=== PATIENT | female | born 1945 | race Caucasian/White ===

== ENCOUNTER 2021-07-13 16:53 | Inpatient (IN) ==
[2021-07-13] MEDS ORDERED: SODIUM CHLORIDE 0.9% IV STA ×2 (17:15→17:59)
[2021-07-13] MEDS ORDERED: LEVETIRACETAM IV STA ×2 (17:15→17:59)
[2021-07-13 17:19] LABS: Basophils % 0.4 % (0.0-0.8); Hematocrit 41.3 VOL% (35.7-47.0); Hemoglobin 13.7 GM/DL (12.0-16.0); Immature Granulocytes % 0.6 %; Immature Granulocytes Absolute 0.06 #; Lymphocytes # 0.8 10*3/uL (1.4-4.0); Lymphocytes % 8.3 % (21.3-54.2); Mean Corpuscular HGB Conc 33.2 GM/DL (32-36); Mean Corpuscular Volume 88.6 FL (87-102); Mean Platelet Volume 9.6 FL (9.6-12.0); Monocytes % 8.5 % (1.7-12.7); Neutrophils % 82.2 % (38.7-73.9); Platelet Count 374 T/CUMM (130-400); Red Blood Count 4.66 MC/CUMM (3.8-5.5); Red Cell Distribution Width 14.4 % (9.3-17.3); White Blood Count 9.8 T/CUMM (4-12)
[2021-07-13 17:40] LABS: Alanine Aminotransferase 13 U/L (13-56); Albumin 3.5 G/DL (3.4-5.0); Alkaline Phosphatase 92 U/L (45-117); Aspartate Amino Transferase 18 U/L (0-37); Blood Urea Nitrogen 19 MG/DL (7-18); Calcium 9.4 MG/DL (8.5-10.1); Carbon Dioxide 19 MMOL/L (21-32); Estimated Glom Filtration Rate 20 ML/MIN; Glucose 162 MG/DL (74-106); Osmolality,Calculated 269.5 MOS/KG (273-304); Potassium 2.6 MMOL/L (3.5-5.1); Sodium 132 MMOL/L (136-145); Total Protein 7.5 G/DL (6.4-8.2)
[2021-07-13 17:42] LABS: Bacteria,Urine Occasional /HPF (Few); Bilirubin,Urine Negative (Negative); Blood, Urine Small mg/dL (Negative); Glucose,Urine (UA) Negative (Negative); Hyaline Casts,Urine 14 /LPF (0-3); Ketones,Urine 5 mg/dL (Negative); Mucus,Urine Occasional /LPF (Occasional); Nitrite,Urine Negative (Negative); Protein,Urine >=500 MG/DL; RBC,Urine 4 /HPF (0-4); Squamous Epithelial Cell,Urine Occasional /HPF (0-10); Urine Appearance CLEAR (Clear); Urine Color Yellow (Yellow); Urine Specific Gravity 1.015 (1.001-1.035); Urine Urobilinogen < 2.0 EU/DL (0.2-1.0)
[2021-07-13] MEDS ORDERED: LACTATED RINGERS 1,000 ML IV ONE (17:45)
[2021-07-13 17:48] LABS: ABG Base Excess -0.3 MMOL/L (-2.5-2.5); ABG HCO3 24.2 MMOL/L (20-26); ABG Oxygen Saturation 98.2 % (95-100); ABG PCO2 38.6 MM HG (35-48); ABG PH 7.405 (7.35-7.45); ABG TCO2 21.2 MMOL/L (23-27)
[2021-07-13 17:48] LABS: Barbiturates Screen,Urine Negative (Negative); Benzodiazepines Screen,Urine Positive (Negative); Cannabinoid Screen,Urine Negative (Negative); Opiate Screen,Urine Negative (Negative); Phencyclidine Screen,Urine Negative (Negative)
[2021-07-13 18:08] LABS: PT Patient Result 11.1 SECS (10.5-12.0); Partial Thromboplastin Time 27.2 SECS (23.8-32.1)
[2021-07-13] MEDS ORDERED: LABETALOL 20 MG/4 ML SYRINGE IV STA (18:28)
[2021-07-13] MEDS: niCARdipine INJ 25 MG in SODIUM CHLORIDE 0.9% 240 ML IV PRN (20:30)
[2021-07-13] MEDS ORDERED: ETOMIDATE 20 MG/10 ML VIAL IV ONE (20:33)
[2021-07-13] MEDS ORDERED: ROCURONIUM 100 MG/10 ML VIAL IV ONE (20:36)
[2021-07-13] MEDS ORDERED: MORPHINE 2 MG/1 ML SYRINGE IV PRN (20:44)
[2021-07-13] MEDS ORDERED: ONDANSETRON 4 MG/2 ML VIAL IV PRN (20:44)
[2021-07-13] MEDS ORDERED: ACETAMINOPHEN 325 MG TABLET PO PRN (20:44)
[2021-07-13] MEDS ORDERED: NICOTINE 21 MG/24 HR PATCH TRANSDERM PRN (20:44)
[2021-07-13] MEDS ORDERED: ALBUTEROL/IPRATROPIUM 3 ML NEB RESP TX PRN (20:44)
[2021-07-13] MEDS ORDERED: ALBUTEROL 2.5 MG/3 ML NEB RESP TX PRN (20:44)
[2021-07-13] MEDS ORDERED: SODIUM CHLORIDE 0.9% 1,000 ML IV ONE (20:44)
[2021-07-13] MEDS ORDERED: LORazepam 2 MG/1 ML VIAL IV PRN (21:01)
[2021-07-13] MEDS: ENOXAPARIN 30 MG/0.3 ML SYRINGE SUBCUT SCH (21:27)
[2021-07-13] MEDS: PANTOPRAZOLE 40 MG VIAL IV SCH (21:27)
[2021-07-13 21:52] LABS: ABG Base Excess -1.4 MMOL/L (-2.5-2.5); ABG HCO3 23.3 MMOL/L (20-26); ABG Oxygen Saturation 99.5 % (95-100); ABG PCO2 45.9 MM HG (35-48); ABG PH 7.339 (7.35-7.45); ABG TCO2 21.9 MMOL/L (23-27)
[2021-07-13] MEDS: SODIUM CHLORIDE 0.9% 1,000 ML IV SCH (22:51)
[2021-07-13] MEDS ORDERED: MIDAZOLAM 100 MG in SODIUM CHLORIDE 0.9% 80 ML IV PRN (23:17)
[2021-07-13] MEDS: POTASSIUM CHLORIDE RIDER 20 MEQ/100 ML PREMIX IV PRN (23:55)
[2021-07-14] MEDS: POTASSIUM CHLORIDE RIDER 20 MEQ/100 ML PREMIX IV PRN ×2 (01:52→10:04)
[2021-07-14] MEDS ORDERED: SODIUM CHLORIDE 0.9% 1,000 ML IV ONE (02:03)
[2021-07-14] MEDS: SODIUM CHLORIDE 0.9% 1,000 ML IV SCH ×3 (03:14→19:51)
[2021-07-14 03:59] LABS: ABG Base Excess -2.9 MMOL/L (-2.5-2.5); ABG Oxygen Saturation 99.2 % (95-100); ABG PCO2 43.1 MM HG (35-48); ABG PH 7.334 (7.35-7.45); ABG TCO2 20.7 MMOL/L (23-27); Allen Test Positive; Pt O2 Delivery Device Ventilator
[2021-07-14] MEDS: POTASSIUM CHLORIDE RIDER 10 MEQ/100 ML PREMIX IV PRN ×2 (04:01→12:35)
[2021-07-14] MEDS: niCARdipine INJ 25 MG in SODIUM CHLORIDE 0.9% 240 ML IV PRN (04:01)
[2021-07-14 04:42] LABS: Basophils % 0.3 % (0.0-0.8); Eosinophils % 0.2 % (0.00-10.9); Hematocrit 31.9 VOL% (35.7-47.0); Immature Granulocytes % 0.7 %; Immature Granulocytes Absolute 0.07 #; Lymphocytes # 1.7 10*3/uL (1.4-4.0); Lymphocytes % 16.7 % (21.3-54.2); Mean Corpuscular HGB Conc 33.2 GM/DL (32-36); Mean Corpuscular Volume 89.6 FL (87-102); Mean Platelet Volume 9.5 FL (9.6-12.0); Neutrophils % 71.1 % (38.7-73.9); Red Cell Distribution Width 14.6 % (9.3-17.3)
[2021-07-14 04:49] LABS: Hemoglobin 10.6 GM/DL (12.0-16.0); Platelet Count 290 T/CUMM (130-400); Red Blood Count 3.56 MC/CUMM (3.8-5.5)
[2021-07-14 06:36] LABS: Albumin 2.5 G/DL (3.4-5.0); Bilirubin,Total 0.4 MG/DL (0.20-1.00); Calcium 7.6 MG/DL (8.5-10.1); Potassium 3.6 MMOL/L (3.5-5.1); Total Protein 5.5 G/DL (6.4-8.2)
[2021-07-14 10:16] LABS: Risk Ratio 3.34; VLDL Cholesterol 17.6 MG/DL
[2021-07-14] MEDS ORDERED: amLODIPine 5 MG TABLET PO SCH (11:00)
[2021-07-14] MEDS ORDERED: METOPROLOL TARTRATE 25 MG TABLET PO SCH (11:00)
[2021-07-14] MEDS: hydrALAZINE 20 MG/1 ML VIAL IV PRN (20:21)
[2021-07-14] MEDS: PANTOPRAZOLE 40 MG VIAL IV SCH (20:22)
[2021-07-14] MEDS: ENOXAPARIN 30 MG/0.3 ML SYRINGE SUBCUT SCH (20:22)
[2021-07-14] MEDS: MONTELUKAST 10 MG TABLET PO SCH (20:29)
[2021-07-15] MEDS: hydrALAZINE 20 MG/1 ML VIAL IV PRN ×2 (03:36→17:48)
[2021-07-15] MEDS: LORazepam 2 MG/1 ML VIAL IV PRN (03:36)
[2021-07-15] MEDS: SODIUM CHLORIDE 0.9% 1,000 ML IV SCH (03:41)
[2021-07-15 04:28] LABS: ABG Base Excess -9.1 MMOL/L (-2.5-2.5); ABG HCO3 17.1 MMOL/L (20-26); ABG Oxygen Saturation 98.2 % (95-100); ABG PCO2 33.4 MM HG (35-48); ABG TCO2 14.9 MMOL/L (23-27)
[2021-07-15 04:44] LABS: Basophils # 0.1 10*3/uL (0.0-0.2); Basophils % 0.3 % (0.0-0.8); Hematocrit 33.6 VOL% (35.7-47.0); Hemoglobin 10.8 GM/DL (12.0-16.0); Immature Granulocytes Absolute 0.15 #; Lymphocytes % 6.8 % (21.3-54.2); Mean Corpuscular HGB Conc 32.1 GM/DL (32-36); Mean Corpuscular Volume 90.6 FL (87-102); Mean Platelet Volume 10.1 FL (9.6-12.0); Monocytes % 6.8 % (1.7-12.7); Neutrophils % 85.1 % (38.7-73.9); Platelet Count 299 T/CUMM (130-400); Red Blood Count 3.71 MC/CUMM (3.8-5.5); Red Cell Distribution Width 15.5 % (9.3-17.3); White Blood Count 14.6 T/CUMM (4-12)
[2021-07-15 04:59] LABS: Calcium 8.5 MG/DL (8.5-10.1); Osmolality,Calculated 276.5 MOS/KG (273-304); Potassium 3.6 MMOL/L (3.5-5.1)
[2021-07-15] MEDS: POTASSIUM CHLORIDE RIDER 20 MEQ/100 ML PREMIX IV PRN (06:40)
[2021-07-15] MEDS ORDERED: LABETALOL 20 MG/4 ML SYRINGE IV ONE (07:09)
[2021-07-15] MEDS ORDERED: MAGNESIUM SULF RIDER 4 GM/100 ML PREMIX IV PRN (07:36)
[2021-07-15] MEDS ORDERED: MAGNESIUM SULF RIDER 2 GM/50 ML PREMIX IV PRN (07:36)
[2021-07-15] MEDS: METOPROLOL SUCCINATE XL 25 MG TABLET PO SCH (09:04)
[2021-07-15] MEDS: CHOLECALCIFEROL 400 UNIT TABLET PO SCH (09:08)
[2021-07-15] MEDS: ASPIRIN 325 MG TABLET PO SCH (09:08)
[2021-07-15] MEDS: DEXT 5% NACL 0.45% KCL 20 MEQ 20 MEQ/1,000 ML BAG IV SCH (10:54)
[2021-07-15] MEDS: ALBUTEROL/IPRATROPIUM 3 ML NEB RESP TX SCH ×4 (11:18→23:25)
[2021-07-15] MEDS ORDERED: amLODIPine 10 MG TABLET PO ONE (11:42)
[2021-07-15] MEDS ORDERED: hydrALAZINE 10 MG TABLET PO SCH (15:00)
[2021-07-15] MEDS ORDERED: METOPROLOL TARTRATE 5 MG/5 ML VIAL IV ONE (15:18)
[2021-07-15 15:47] LABS: Calcium 8.3 MG/DL (8.5-10.1); Osmolality,Calculated 280.4 MOS/KG (273-304); Potassium 4.3 MMOL/L (3.5-5.1)
[2021-07-15] MEDS ORDERED: CLORAZEPATE 7.5 MG TABLET PO ONE (18:27)
[2021-07-15] MEDS: ATORVASTATIN 40 MG TABLET PO SCH (21:18)
[2021-07-15] MEDS: MONTELUKAST 10 MG TABLET PO SCH (21:19)
[2021-07-15] MEDS: hydrALAZINE 25 MG TABLET PO SCH (21:19)
[2021-07-15] MEDS: ENOXAPARIN 30 MG/0.3 ML SYRINGE SUBCUT SCH (21:19)
[2021-07-16] MEDS: DEXT 5% NACL 0.45% KCL 20 MEQ 20 MEQ/1,000 ML BAG IV SCH (01:31)
[2021-07-16] MEDS: ALBUTEROL/IPRATROPIUM 3 ML NEB RESP TX SCH ×6 (03:05→23:20)
[2021-07-16 04:46] LABS: Basophils % 0.1 % (0.0-0.8); Hematocrit 34.6 VOL% (35.7-47.0); Hemoglobin 10.9 GM/DL (12.0-16.0); Immature Granulocytes % 2.1 %; Immature Granulocytes Absolute 0.31 #; Lymphocytes # 0.5 10*3/uL (1.4-4.0); Lymphocytes % 3.2 % (21.3-54.2); Mean Corpuscular HGB Conc 31.5 GM/DL (32-36); Mean Corpuscular Volume 95.1 FL (87-102); Mean Platelet Volume 10.1 FL (9.6-12.0); Monocytes % 4.5 % (1.7-12.7); Neutrophils % 90.1 % (38.7-73.9); Platelet Count 283 T/CUMM (130-400); Red Blood Count 3.64 MC/CUMM (3.8-5.5); Red Cell Distribution Width 16.1 % (9.3-17.3); White Blood Count 14.7 T/CUMM (4-12)
[2021-07-16 04:59] LABS: Calcium 8.5 MG/DL (8.5-10.1); Osmolality,Calculated 282.5 MOS/KG (273-304); Potassium 5.1 MMOL/L (3.5-5.1)
[2021-07-16 05:15] LABS: Hypochromasia Slight; Lymphocytes 4 % (20-55); Microcytosis Slight; Platelet Estimate Adequate; Segmented Neutrophils 95 % (50-85); Total Cells Counted 100
[2021-07-16] MEDS ORDERED: FUROSEMIDE 40 MG/4 ML VIAL IV ONE ×2 (08:25→21:00)
[2021-07-16 08:40] LABS: ABG Base Excess -13.2 MMOL/L (-2.5-2.5); ABG HCO3 14.2 MMOL/L (20-26); ABG Oxygen Saturation 89.8 % (95-100); ABG PO2 73.5 MM HG (80-95); ABG TCO2 19.5 MMOL/L (23-27); Allen Test Positive; Pt O2 Delivery Device Simple Mask
[2021-07-16 08:47] LABS: ABG PH 7.007 (7.35-7.45)
[2021-07-16 08:48] LABS: ABG PCO2 79.8 MM HG (35-48)
[2021-07-16] MEDS ORDERED: SODIUM BICARBONATE 50 MEQ/50 ML SYRINGE IV ONE ×2 (09:32→10:00)
[2021-07-16] MEDS: hydrALAZINE 25 MG TABLET PO SCH ×3 (10:12→20:46)
[2021-07-16] MEDS: NICOTINE 21 MG/24 HR PATCH TRANSDERM SCH (10:12)
[2021-07-16] MEDS: PANTOPRAZOLE 40 MG TABLET PO SCH (10:13)
[2021-07-16] MEDS: CHOLECALCIFEROL 400 UNIT TABLET PO SCH (10:13)
[2021-07-16] MEDS: ASPIRIN 325 MG TABLET PO SCH (10:13)
[2021-07-16] MEDS: METOPROLOL SUCCINATE XL 25 MG TABLET PO SCH (10:13)
[2021-07-16] MEDS: methylPREDNISolone SOD SUC 40 MG/1 ML VIAL IV SCH ×2 (10:19→20:40)
[2021-07-16] MEDS: CLINDAMYCIN INJ 600 MG/50 ML PREMIX IV SCH ×2 (10:22→17:23)
[2021-07-16 10:51] LABS: ABG HCO3 19.5 MMOL/L (20-26); ABG Oxygen Saturation 92.4 % (95-100); ABG PCO2 50.1 MM HG (35-48); ABG PH 7.245 (7.35-7.45); ABG PO2 65.3 MM HG (80-95); ABG TCO2 19.9 MMOL/L (23-27); Allen Test Positive; Pt O2 Delivery Device BIPAP
[2021-07-16] MEDS: hydrALAZINE 20 MG/1 ML VIAL IV PRN (13:07)
[2021-07-16] MEDS ORDERED: amLODIPine 10 MG TABLET PO ONE (17:16)
[2021-07-16] MEDS: INSULIN LISPRO 100 UNIT/ML SUBCUT SCH (18:24)
[2021-07-16] MEDS: ENOXAPARIN 30 MG/0.3 ML SYRINGE SUBCUT SCH (20:32)
[2021-07-16] MEDS: ATORVASTATIN 40 MG TABLET PO SCH (20:46)
[2021-07-16] MEDS: MONTELUKAST 10 MG TABLET PO SCH (20:46)
[2021-07-17] MEDS: CLINDAMYCIN INJ 600 MG/50 ML PREMIX IV SCH (03:09)
[2021-07-17] MEDS: INSULIN LISPRO 100 UNIT/ML SUBCUT SCH ×4 (03:12→17:58)
[2021-07-17] MEDS: ALBUTEROL/IPRATROPIUM 3 ML NEB RESP TX SCH ×6 (03:45→22:50)
[2021-07-17 04:17] LABS: ABG Base Excess -1.3 MMOL/L (-2.5-2.5); ABG HCO3 23.4 MMOL/L (20-26); ABG Oxygen Saturation 99.4 % (95-100); ABG PCO2 30.6 MM HG (35-48); ABG TCO2 19.6 MMOL/L (23-27)
[2021-07-17 05:18] LABS: Basophils % 0.2 % (0.0-0.8); Eosinophils # 0.1 10*3/uL (0.0-0.87); Eosinophils % 0.3 % (0.00-10.9); Hematocrit 30.5 VOL% (35.7-47.0); Hemoglobin 10.1 GM/DL (12.0-16.0); Immature Granulocytes % 0.7 %; Immature Granulocytes Absolute 0.14 #; Lymphocytes # 0.5 10*3/uL (1.4-4.0); Lymphocytes % 2.4 % (21.3-54.2); Mean Corpuscular HGB Conc 33.1 GM/DL (32-36); Mean Corpuscular Volume 88.9 FL (87-102); Mean Platelet Volume 10.9 FL (9.6-12.0); NRBC # 0.02 10*3/uL; Neutrophils % 92.4 % (38.7-73.9); Platelet Count 245 T/CUMM (130-400); Red Blood Count 3.43 MC/CUMM (3.8-5.5); Red Cell Distribution Width 15.8 % (9.3-17.3); White Blood Count 19.2 T/CUMM (4-12)
[2021-07-17 05:39] LABS: Band Neutrophils 4 % (0-10); Hypochromasia 1+; Lymphocytes 5 % (20-55); Microcytosis 1+; Platelet Estimate Adequate; Segmented Neutrophils 88 % (50-85); Total Cells Counted 100
[2021-07-17 05:44] LABS: Alanine Aminotransferase 11 U/L (13-56); Albumin 2.1 G/DL (3.4-5.0); Alkaline Phosphatase 63 U/L (45-117); Aspartate Amino Transferase 24 U/L (0-37); Bilirubin,Total < 0.39 MG/DL (0.20-1.00); Blood Urea Nitrogen 33 MG/DL (7-18); Carbon Dioxide 24 MMOL/L (21-32); Estimated Glom Filtration Rate 19 ML/MIN; Glucose 153 MG/DL (74-106); Osmolality,Calculated 288.4 MOS/KG (273-304); Potassium 4.2 MMOL/L (3.5-5.1); Sodium 140 MMOL/L (136-145); Total Protein 5.6 G/DL (6.4-8.2)
[2021-07-17] MEDS: CLINDAMYCIN INJ 900 MG/50 ML PREMIX IV SCH ×2 (09:09→15:14)
[2021-07-17] MEDS: METOPROLOL SUCCINATE XL 25 MG TABLET PO SCH (09:12)
[2021-07-17] MEDS: hydrALAZINE 25 MG TABLET PO SCH ×3 (09:12→21:08)
[2021-07-17] MEDS: amLODIPine 10 MG TABLET PO SCH (09:12)
[2021-07-17] MEDS: OMEPRAZOLE ODT 20 MG TABLET PER TUBE SCH (09:12)
[2021-07-17] MEDS: CHOLECALCIFEROL 400 UNIT TABLET PO SCH (09:12)
[2021-07-17] MEDS: ASPIRIN 325 MG TABLET PO SCH (09:12)
[2021-07-17] MEDS: NICOTINE 21 MG/24 HR PATCH TRANSDERM SCH (09:13)
[2021-07-17] MEDS: methylPREDNISolone SOD SUC 40 MG/1 ML VIAL IV SCH ×2 (09:16→16:41)
[2021-07-17] MEDS ORDERED: methylPREDNISolone SOD SUC 40 MG/1 ML VIAL IV SCH (10:30)
[2021-07-17] MEDS ORDERED: SODIUM CHLORIDE 0.65% NASAL SPRAY 45 ML BOTTLE BOTH NARES PRN (12:02)
[2021-07-17] MEDS ORDERED: LORazepam 2 MG/1 ML VIAL ONE (20:40)
[2021-07-17] MEDS: ENOXAPARIN 30 MG/0.3 ML SYRINGE SUBCUT SCH (21:00)
[2021-07-17] MEDS: ATORVASTATIN 40 MG TABLET PO SCH (21:01)
[2021-07-17] MEDS: MONTELUKAST 10 MG TABLET PO SCH (21:01)
[2021-07-17] MEDS: LORazepam 2 MG/1 ML VIAL IV PRN (21:02)
[2021-07-18] MEDS: INSULIN LISPRO 100 UNIT/ML SUBCUT SCH ×4 (01:36→18:22)
[2021-07-18] MEDS: NICOTINE 21 MG/24 HR PATCH TRANSDERM SCH ×2 (01:44→10:11)
[2021-07-18] MEDS: methylPREDNISolone SOD SUC 40 MG/1 ML VIAL IV SCH ×3 (01:45→17:28)
[2021-07-18] MEDS: CLINDAMYCIN INJ 900 MG/50 ML PREMIX IV SCH ×3 (01:45→17:28)
[2021-07-18] MEDS: hydrALAZINE 20 MG/1 ML VIAL IV PRN (02:16)
[2021-07-18] MEDS: ALBUTEROL/IPRATROPIUM 3 ML NEB RESP TX SCH ×6 (03:30→23:32)
[2021-07-18 04:18] LABS: ABG Base Excess -0.6 MMOL/L (-2.5-2.5); ABG HCO3 23.9 MMOL/L (20-26); ABG Oxygen Saturation 99.8 % (95-100); ABG PCO2 33.3 MM HG (35-48); ABG PH 7.446 (7.35-7.45); ABG TCO2 20.8 MMOL/L (23-27)
[2021-07-18] MEDS ORDERED: LORazepam 2 MG/1 ML VIAL ONE (05:33)
[2021-07-18 05:36] LABS: Basophils % 0.1 % (0.0-0.8); Hematocrit 27.8 VOL% (35.7-47.0); Hemoglobin 9.3 GM/DL (12.0-16.0); Immature Granulocytes % 2.3 %; Immature Granulocytes Absolute 0.46 #; Lymphocytes # 0.5 10*3/uL (1.4-4.0); Lymphocytes % 2.2 % (21.3-54.2); Mean Corpuscular HGB Conc 33.5 GM/DL (32-36); Mean Corpuscular Volume 87.4 FL (87-102); Mean Platelet Volume 11.1 FL (9.6-12.0); Monocytes % 5.5 % (1.7-12.7); NRBC # 0.04 10*3/uL; Neutrophils % 89.9 % (38.7-73.9); Platelet Count 237 T/CUMM (130-400); Red Blood Count 3.18 MC/CUMM (3.8-5.5); Red Cell Distribution Width 15.9 % (9.3-17.3); White Blood Count 20.1 T/CUMM (4-12)
[2021-07-18] MEDS: LORazepam 2 MG/1 ML VIAL IV PRN (05:36)
[2021-07-18 05:53] LABS: Calcium 8.8 MG/DL (8.5-10.1); Osmolality,Calculated 291.3 MOS/KG (273-304); Potassium 3.8 MMOL/L (3.5-5.1)
[2021-07-18 05:58] LABS: Band Neutrophils 2 % (0-10); Eosinophils 1 % (0-10); Hypochromasia Slight; Lymphocytes 5 % (20-55); Platelet Estimate Adequate; Segmented Neutrophils 84 % (50-85); Total Cells Counted 100
[2021-07-18] MEDS ORDERED: CLORAZEPATE 3.75 MG TABLET PO PRN (08:35)
[2021-07-18] MEDS: ASPIRIN 325 MG TABLET PO SCH (10:06)
[2021-07-18] MEDS: CHOLECALCIFEROL 400 UNIT TABLET PO SCH (10:06)
[2021-07-18] MEDS: OMEPRAZOLE ODT 20 MG TABLET PER TUBE SCH (10:06)
[2021-07-18] MEDS: METOPROLOL SUCCINATE XL 25 MG TABLET PO SCH (10:07)
[2021-07-18] MEDS: amLODIPine 10 MG TABLET PO SCH (10:07)
[2021-07-18] MEDS: hydrALAZINE 25 MG TABLET PO SCH ×3 (10:32→20:54)
[2021-07-18] MEDS: ENOXAPARIN 30 MG/0.3 ML SYRINGE SUBCUT SCH (20:53)
[2021-07-18] MEDS: MONTELUKAST 10 MG TABLET PO SCH (20:54)
[2021-07-18] MEDS: ATORVASTATIN 40 MG TABLET PO SCH (20:54)
[2021-07-19] MEDS: CLINDAMYCIN INJ 900 MG/50 ML PREMIX IV SCH ×3 (00:15→16:20)
[2021-07-19] MEDS: INSULIN LISPRO 100 UNIT/ML SUBCUT SCH ×5 (00:25→21:04)
[2021-07-19] MEDS: methylPREDNISolone SOD SUC 40 MG/1 ML VIAL IV SCH ×3 (00:52→16:20)
[2021-07-19] MEDS: ALBUTEROL/IPRATROPIUM 3 ML NEB RESP TX SCH ×6 (03:17→23:55)
[2021-07-19] MEDS: hydrALAZINE 20 MG/1 ML VIAL IV PRN ×2 (05:49→10:22)
[2021-07-19 06:05] LABS: Basophils # 0.1 10*3/uL (0.0-0.2); Basophils % 0.2 % (0.0-0.8); Hematocrit 28.1 VOL% (35.7-47.0); Hemoglobin 9.4 GM/DL (12.0-16.0); Immature Granulocytes % 6.5 %; Immature Granulocytes Absolute 1.38 #; Lymphocytes # 0.6 10*3/uL (1.4-4.0); Lymphocytes % 2.6 % (21.3-54.2); Mean Corpuscular HGB Conc 33.5 GM/DL (32-36); Mean Corpuscular Volume 87.5 FL (87-102); Mean Platelet Volume 11.4 FL (9.6-12.0); NRBC # 0.09 10*3/uL; Neutrophils % 85.7 % (38.7-73.9); Platelet Count 261 T/CUMM (130-400); Red Blood Count 3.21 MC/CUMM (3.8-5.5); White Blood Count 21.4 T/CUMM (4-12)
[2021-07-19 06:18] LABS: Calcium 8.9 MG/DL (8.5-10.1); Potassium 3.8 MMOL/L (3.5-5.1)
[2021-07-19 06:31] LABS: Anisocytosis 2+; Band Neutrophils 25 % (0-10); Lymphocytes 6 % (20-55); Platelet Estimate Normal; Segmented Neutrophils 67 % (50-85); Target Cells 1+; Total Cells Counted 100
[2021-07-19 06:32] LABS: Burr Cells Few; Ovalocytes Few
[2021-07-19] MEDS: amLODIPine 10 MG TABLET PO SCH (08:25)
[2021-07-19] MEDS: NICOTINE 21 MG/24 HR PATCH TRANSDERM SCH (08:26)
[2021-07-19] MEDS: hydrALAZINE 25 MG TABLET PO SCH ×3 (08:26→21:03)
[2021-07-19] MEDS: OMEPRAZOLE ODT 20 MG TABLET PER TUBE SCH (08:26)
[2021-07-19] MEDS: CHOLECALCIFEROL 400 UNIT TABLET PO SCH (08:26)
[2021-07-19] MEDS: METOPROLOL SUCCINATE XL 25 MG TABLET PO SCH (08:26)
[2021-07-19] MEDS: ASPIRIN 325 MG TABLET PO SCH (08:27)
[2021-07-19] MEDS ORDERED: FUROSEMIDE 40 MG/4 ML VIAL IV ONE ×2 (09:20→21:00)
[2021-07-19] MEDS ORDERED: DILTIAZEM 25 MG/5 ML VIAL IV ONE (10:37)
[2021-07-19] MEDS ORDERED: DILTIAZEM 50 MG/10 ML VIAL IV ONE (11:13)
[2021-07-19] MEDS: DILTIAZEM 30 MG TABLET PO SCH ×2 (14:15→14:53)
[2021-07-19] MEDS: ACETYLCYSTEINE 20% 800 MG/4 ML VIAL RESP TX SCH ×2 (15:00→23:55)
[2021-07-19] MEDS ORDERED: DILTIAZEM 30 MG TABLET PO SCH (15:00)
[2021-07-19] MEDS: HEPARIN 5,000 UNIT/1 ML VIAL SUBCUT SCH (16:30)
[2021-07-19] MEDS: ATORVASTATIN 40 MG TABLET PO SCH (21:03)
[2021-07-19] MEDS: MONTELUKAST 10 MG TABLET PO SCH (21:03)
[2021-07-19] MEDS: DILTIAZEM 60 MG TABLET PO SCH (21:03)
[2021-07-20] MEDS: methylPREDNISolone SOD SUC 40 MG/1 ML VIAL IV SCH ×3 (00:36→18:33)
[2021-07-20] MEDS: DILTIAZEM 60 MG TABLET PO SCH ×2 (02:24→08:53)
[2021-07-20] MEDS: CLINDAMYCIN INJ 900 MG/50 ML PREMIX IV SCH ×2 (03:35→10:42)
[2021-07-20 03:38] LABS: Basophils # 0.1 10*3/uL (0.0-0.2); Basophils % 0.3 % (0.0-0.8); Eosinophils % 0.2 % (0.00-10.9); Hematocrit 29.7 VOL% (35.7-47.0); Hemoglobin 9.7 GM/DL (12.0-16.0); Immature Granulocytes % 11.3 %; Immature Granulocytes Absolute 2.38 #; Lymphocytes # 0.9 10*3/uL (1.4-4.0); Lymphocytes % 4.1 % (21.3-54.2); Mean Corpuscular HGB Conc 32.7 GM/DL (32-36); Mean Corpuscular Volume 87.6 FL (87-102); Mean Platelet Volume 11.2 FL (9.6-12.0); Monocytes % 6.1 % (1.7-12.7); NRBC # 0.09 10*3/uL; Platelet Count 279 T/CUMM (130-400); Red Blood Count 3.39 MC/CUMM (3.8-5.5)
[2021-07-20 03:41] LABS: Albumin 2.5 G/DL (3.4-5.0); Bilirubin,Total 0.5 MG/DL (0.20-1.00); Calcium 8.5 MG/DL (8.5-10.1); Osmolality,Calculated 299.1 MOS/KG (273-304); Potassium 3.7 MMOL/L (3.5-5.1); Total Protein 6.3 G/DL (6.4-8.2)
[2021-07-20] MEDS: ALBUTEROL/IPRATROPIUM 3 ML NEB RESP TX SCH ×7 (03:41→20:00)
[2021-07-20] MEDS ORDERED: DILTIAZEM 50 MG/10 ML VIAL IV ONE (03:51)
[2021-07-20 04:27] LABS: Band Neutrophils 2 % (0-10); Lymphocytes 3 % (20-55); Metamyelocytes 7 %; Plasma Cells 1; Platelet Estimate Adequate; Promyelocytes 1 %; Segmented Neutrophils 79 % (50-85); Total Cells Counted 99
[2021-07-20 04:28] LABS: Acanthocytes Few; Anisocytosis Slight; Polychromasia Slight; Target Cells Few
[2021-07-20] MEDS: HEPARIN 5,000 UNIT/1 ML VIAL SUBCUT SCH (04:55)
[2021-07-20] MEDS: ACETYLCYSTEINE 20% 800 MG/4 ML VIAL RESP TX SCH ×2 (07:35→13:30)
[2021-07-20] MEDS: INSULIN LISPRO 100 UNIT/ML SUBCUT SCH ×4 (07:57→21:09)
[2021-07-20] MEDS ORDERED: FUROSEMIDE 40 MG/4 ML VIAL IV ONE (08:15)
[2021-07-20] MEDS: PANTOPRAZOLE 40 MG TABLET PO SCH (08:40)
[2021-07-20] MEDS: hydrALAZINE 25 MG TABLET PO SCH ×3 (08:54→21:09)
[2021-07-20] MEDS: ASPIRIN 325 MG TABLET PO SCH (08:55)
[2021-07-20] MEDS: OMEPRAZOLE ODT 20 MG TABLET PER TUBE SCH (08:55)
[2021-07-20] MEDS: CHOLECALCIFEROL 400 UNIT TABLET PO SCH (08:57)
[2021-07-20] MEDS: ASCORBIC ACID 500 MG TABLET PO SCH ×2 (08:57→21:09)
[2021-07-20] MEDS: POTASSIUM CHLORIDE RIDER 10 MEQ/100 ML PREMIX IV PRN ×3 (08:59→12:20)
[2021-07-20] MEDS ORDERED: METOPROLOL TARTRATE 25 MG TABLET PO SCH (09:00)
[2021-07-20] MEDS ORDERED: APIXABAN 5 MG TABLET PO SCH (09:00)
[2021-07-20] MEDS: NICOTINE 21 MG/24 HR PATCH TRANSDERM SCH (09:03)
[2021-07-20 11:49] LABS: ABG Base Excess 0.3 MMOL/L (-2.5-2.5); ABG HCO3 24.7 MMOL/L (20-26); ABG Oxygen Saturation 99.4 % (95-100); ABG PCO2 33.1 MM HG (35-48); ABG PH 7.462 (7.35-7.45); ABG TCO2 21.5 MMOL/L (23-27)
[2021-07-20] MEDS: SOTALOL 80 MG TABLET PO SCH ×2 (12:17→21:09)
[2021-07-20] MEDS: CEFEPIME 1,000 MG in SODIUM CHLORIDE 0.9% 100 ML IV SCH (15:01)
[2021-07-20] MEDS ORDERED: FUROSEMIDE 40 MG/4 ML VIAL IV SCH (21:00)
[2021-07-20] MEDS: MONTELUKAST 10 MG TABLET PO SCH (21:09)
[2021-07-20] MEDS: APIXABAN 2.5 MG TABLET PO SCH (21:09)
[2021-07-20] MEDS: ATORVASTATIN 40 MG TABLET PO SCH (21:10)
[2021-07-21] MEDS: methylPREDNISolone SOD SUC 40 MG/1 ML VIAL IV SCH ×2 (00:35→09:28)
[2021-07-21] MEDS: CEFEPIME 1,000 MG in SODIUM CHLORIDE 0.9% 100 ML IV SCH ×2 (00:35→15:22)
[2021-07-21] MEDS: ACETYLCYSTEINE 20% 800 MG/4 ML VIAL RESP TX SCH ×3 (00:50→15:59)
[2021-07-21] MEDS: ALBUTEROL/IPRATROPIUM 3 ML NEB RESP TX SCH ×5 (00:50→14:59)
[2021-07-21 05:08] LABS: ABG Base Excess 0.6 MMOL/L (-2.5-2.5); ABG HCO3 24.8 MMOL/L (20-26); ABG Oxygen Saturation 92.2 % (95-100); ABG PH 7.456 (7.35-7.45); ABG PO2 65.5 MM HG (80-95); ABG TCO2 21.6 MMOL/L (23-27)
[2021-07-21 07:07] LABS: Basophils # 0.1 10*3/uL (0.0-0.2); Basophils % 0.3 % (0.0-0.8); Eosinophils % 0.2 % (0.00-10.9); Hematocrit 29.3 VOL% (35.7-47.0); Immature Granulocytes % 10.9 %; Immature Granulocytes Absolute 1.93 #; Lymphocytes # 1.1 10*3/uL (1.4-4.0); Lymphocytes % 5.9 % (21.3-54.2); Mean Corpuscular HGB Conc 34.1 GM/DL (32-36); Mean Corpuscular Volume 86.9 FL (87-102); Mean Platelet Volume 10.8 FL (9.6-12.0); Monocytes % 4.6 % (1.7-12.7); NRBC # 0.05 10*3/uL; Neutrophils % 78.1 % (38.7-73.9); Platelet Count 257 T/CUMM (130-400); Red Blood Count 3.37 MC/CUMM (3.8-5.5); Red Cell Distribution Width 15.7 % (9.3-17.3); White Blood Count 17.7 T/CUMM (4-12)
[2021-07-21 07:21] LABS: Calcium 8.3 MG/DL (8.5-10.1); Osmolality,Calculated 295.5 MOS/KG (273-304); Potassium 3.9 MMOL/L (3.5-5.1)
[2021-07-21 07:32] LABS: Band Neutrophils 1 % (0-10); Lymphocytes 4 % (20-55); Metamyelocytes 1 %; Myelocytes 1 %; Segmented Neutrophils 88 % (50-85); Total Cells Counted 100
[2021-07-21 07:33] LABS: Hypochromasia 1+; Microcytosis 1+; Ovalocytes Slight; Platelet Estimate Normal; Target Cells Slight
[2021-07-21] MEDS: INSULIN LISPRO 100 UNIT/ML SUBCUT SCH ×3 (07:48→16:30)
[2021-07-21] MEDS ORDERED: FUROSEMIDE 40 MG/4 ML VIAL IV SCH (09:00)
[2021-07-21] MEDS: hydrALAZINE 25 MG TABLET PO SCH ×2 (09:26→14:25)
[2021-07-21] MEDS: ASPIRIN 325 MG TABLET PO SCH (09:26)
[2021-07-21] MEDS: CHOLECALCIFEROL 400 UNIT TABLET PO SCH (09:26)
[2021-07-21] MEDS: OMEPRAZOLE ODT 20 MG TABLET PER TUBE SCH (09:27)
[2021-07-21] MEDS: APIXABAN 2.5 MG TABLET PO SCH (09:27)
[2021-07-21] MEDS: ASCORBIC ACID 500 MG TABLET PO SCH (09:27)
[2021-07-21] MEDS: NICOTINE 21 MG/24 HR PATCH TRANSDERM SCH (09:27)
[2021-07-21] MEDS: PANTOPRAZOLE 40 MG TABLET PO SCH (09:27)
[2021-07-21] MEDS: SOTALOL 80 MG TABLET PO SCH (09:27)
[2021-07-21] MEDS ORDERED: methylPREDNISolone SOD SUC 40 MG/1 ML VIAL IV SCH (10:30)
[2021-07-21] MEDS: hydrALAZINE 20 MG/1 ML VIAL IV PRN (13:39)
[2021-07-21 16:18] VITALS: BP 133/53
[2021-07-21] MEDS ORDERED: levETIRAcetam 500 MG TABLET PO SCH (21:00)
[2021-07-21] MEDS ORDERED: METOPROLOL SUCCINATE XL 25 MG TABLET PO SCH (21:00)
== END 2021-07-21 17:18 | DRG 100 ==
LOC: N.ED 16:53 → N.EDINP 20:44 → SUATTDRO 20:44 → N.ICU 21:49 → N.TELES 07-19 17:47
PROVIDERS: ADMIT Family Medicine; ATTEND Internal Medicine Geriatric Medicine